=== PATIENT | male | born 1945 | race Caucasian/White ===

== ENCOUNTER 2018-06-26 17:50 | Inpatient (IN) ==
--- NOTE | 2018-06-26 18:14 | Emergency Department Note ---
Disposition Clinical Impression: Melena Anemia Qualifiers: Anemia type: unspecified type Qualified Code(s): D64.9 - Anemia, unspecified Disposition: Admitted As Inpatient Condition: Fair Time of Disposition: 21:25 General Adult HPI - General Chief complaint: ED Recheck/Abnormal Lab/Rx Stated complaint: low hemiglobin Time Seen by Provider: 06/26/18 17:53 Source: patient, EMS Mode of arrival: EMS Limitations: no limitations Nursing Notes Reviewed: Yes Vital Signs Reviewed: Yes - History of Present Illness HPI Narrative: Patient is a 72-year-old male with past medical history of obesity, diabetes, hyperlipidemia, A. fib and is currently on aspirin and apixaban, congestive heart failure, GERD, hypertension, COPD and wears 3 L nasal cannula chronically. Presents today due to concern for dark stools and anemia. Patient is a transfer from the [facility]. Patient states that over the past 30 days, he has had dark colored stools. Denies any abdominal pain. Denies any other dysuria, hematuria, chest pain. He does have chronic shortness of breath that he states is near baseline for his COPD. Denies any fevers, productive cough. He admits to history of GERD. Denies any history of any previous GI bleeds. He does have a history of hemorrhoids but states that he has not had any bright red blood per rectum over the past 30 days. The [facility] did blood work and states that he has had a drop in his hemoglobin of 3 units of the past 3 days and states that his most recent hemoglobin was 7. Labs were not sent over by the [facility]. He was sent here for endoscopy and possible blood transfusion. Patient reportedly had a positive Hemoccult at the [facility]. - Related Data Allergies Allergy/AdvReac Type Severity Reaction Status Date / Time methadone Allergy Hallucinati Verified 06/26/18 19:50 ng mirtazapine Allergy Rash Verified 06/26/18 19:50 morphine Allergy Hallucinati Verified 06/26/18 19:50 ng simvastatin Allergy Gastrointestinal Verified 06/26/18 19:50 Upset All systems ED: reviewed and negative except as stated. Constitutional: Denies: fever Cardiovascular: Denies: chest pain Respiratory: Reports: dyspnea Gastrointestinal: Reports: melena. Denies: abdominal pain, nausea, vomiting, diarrhea, constipation, hematochezia Genitourinary: Denies: urgency, dysuria, frequency, hematuria Past Medical History - Past Medical History Attestation: Yes The following information was validated with the patient. Source: patient Physical Exam - General Limitations: no limitations General appearance: alert, in no apparent distress - Head Head exam: atraumatic, normocephalic, normal inspection - Eye Eye exam: Present: PERRL, EOMI, other (Pale conjunctivae) - ENT ENT exam: normal oropharynx, mucous membranes moist, other (pale sublingual mucosa) - Neck Neck exam: Present: normal inspection, full ROM, trachea midline - Chest Chest inspection: Present: normal inspection, symmetric chest wall rise - Respiratory Respiratory exam: Present: normal lung sounds bilaterally - Cardiovascular Cardiovascular exam: Present: regular rate, normal rhythm, normal heart sounds - Abdominal Exam Abdominal exam: Present: soft, Non-Tender. Absent: tenderness, distention, guarding, rebound, rigidity - Extremities Exam Extremities exam: Present: normal inspection, full ROM. Absent: tenderness, pedal edema - Neurological Exam Neurological exam: Present: alert, oriented X3 - Psychiatric Psychiatric exam: Present: normal affect, normal mood - Skin Skin exam: Present: warm, dry, intact, normal color Course Course Narrative: Vital stable on exam. Physical exam did show gel pallor, sublingual pallor, conjunctival pallor. Otherwise, this is physical exam fairly benign. He had no abdominal pain. Hemoccult positive at outside facility. Basic blood work, CBC, BMP, troponin, EKG, type and screen ordered. Patient's" and is 6.7. Discussed transfusion with the patient, we will go ahead and transfuse 2 units of packed red blood cells. Platelets within normal limits. INR 1.5. Currently waiting on rest of his to labs come back and then will admit for further care. Patient will need GI consult with endoscopy. 21:00 Negative trop. Elevated creat, unsure if chronic due to no labs for comparison. Stable BP and vitals. Accepted by Dr. Turner for admission Vital Signs Temperature 99.6 F 06/26/18 18:02 Pulse Rate 77 06/26/18 18:02 Respiratory Rate 18 06/26/18 18:02 Blood Pressure 123/88 06/26/18 18:02 O2 Sat by Pulse Oximetry 97 06/26/18 18:02 Temperature 99.4 F 06/26/18 20:34 Pulse Rate 80 06/26/18 21:21 Respiratory Rate 20 06/26/18 21:21 Blood Pressure 105/57 06/26/18 21:21 O2 Sat by Pulse Oximetry 100 06/26/18 21:21 Oxygen Delivery Oxygen Delivery Nasal Cannula Medical Decision Making - MDM Narrative Medical decision making narrative: Vital stable on exam. Physical exam did show gel pallor, sublingual pallor, conjunctival pallor. Otherwise, this is physical exam fairly benign. He had no abdominal pain. Hemoccult positive at outside facility. Basic blood work, CBC, BMP, troponin, EKG, type and screen ordered. Patient's" and is 6.7. Discussed transfusion with the patient, we will go ahead and transfuse 2 units of packed red blood cells. Platelets within normal limits. INR 1.5. Currently waiting on rest of his to labs come back and then will admit for further care. Patient will need GI consult with endoscopy. 21:00 Negative trop. Elevated creat, unsure if chronic due to no labs for comparison. Stable BP and vitals. Accepted by Dr. Turner for admission - Medical Records Medical records reviewed: Yes I reviewed the patient's medical records. - Lab Data Lab results reviewed: Yes I reviewed the patient's lab results. Result diagrams: 06/26/18 18:20 06/26/18 18:20 Lab Results 06/26/18 06/26/18 06/26/18 Range/Units 18:20 18:20 18:20 WBC 6.7 (4.3-11.1) K/mcL RBC 2.37 L (4.19-5.50) M/mcL Hgb 6.2 L (12.9-16.9) g/dL Hct 22.4 L (37.5-50.1) % MCV 94.5 (83.0-100.0) fL MCH 26.2 L (28.0-33.3) pg MCHC 27.7 L (31.6-35.5) g/dL RDW 16.4 H (11.5-14.5) % Plt Count 231 (140-400) K/mcL MPV 9.9 (9.4-12.4) fL Immature Gran % 0.3 (0-4) % Seg Neutrophils % 72.0 % Lymphocytes % 16.0 % Monocytes % 11.0 % Eosinophils % 0.4 % Basophils % 0.3 % Neutrophils # 4.8 (1.6-8.9) K/mcL Lymphocytes # 1.1 (0.6-4.6) K/mcL Monocytes # 0.7 (0.0-1.3) K/mcL Eosinophils # 0.0 (0.0-0.6) K/mcL Basophils # 0.0 (0.0-0.2) K/mcL Nucleated RBCs/100 WBC 0.3 H (0) /100 WBC Platelet Estimate Normal (Normal) Hypochromasia Present A (Not Present) Anisocytosis 1+ A (Not Present) Microcytosis Present A (Not Present) PT 16.4 H (9.4-12.1) Seconds INR 1.5 APTT 31.0 (26.0-36.0) Seconds Sodium (136-145) mEq/L Potassium (3.5-5.1) mEq/L Chloride (98-107) mEq/L Carbon Dioxide (23-29) mEq/L BUN (8-23) mg/dL Creatinine (0.70-1.30) mg/dL Est GFR ( Amer) (> 60) Est GFR (Non-Af Amer) (> 60) BUN/Creatinine Ratio (6-26) Glucose (70-105) mg/dL Calculated Osmolality (280-300) Calcium (8.6-10.3) mg/dL Troponin I (< 0.04) ng/mL Blood Type A POSITIVE Antibody Screen NEGATIVE Crossmatch See Detail 06/26/18 Range/Units 18:20 WBC (4.3-11.1) K/mcL RBC (4.19-5.50) M/mcL Hgb (12.9-16.9) g/dL Hct (37.5-50.1) % MCV (83.0-100.0) fL MCH (28.0-33.3) pg MCHC (31.6-35.5) g/dL RDW (11.5-14.5) % Plt Count (140-400) K/mcL MPV (9.4-12.4) fL Immature Gran % (0-4) % Seg Neutrophils % % Lymphocytes % % Monocytes % % Eosinophils % % Basophils % % Neutrophils # (1.6-8.9) K/mcL Lymphocytes # (0.6-4.6) K/mcL Monocytes # (0.0-1.3) K/mcL Eosinophils # (0.0-0.6) K/mcL Basophils # (0.0-0.2) K/mcL Nucleated RBCs/100 WBC (0) /100 WBC Platelet Estimate (Normal) Hypochromasia (Not Present) Anisocytosis (Not Present) Microcytosis (Not Present) PT (9.4-12.1) Seconds INR APTT (26.0-36.0) Seconds Sodium 142 (136-145) mEq/L Potassium 4.0 (3.5-5.1) mEq/L Chloride 94 L (98-107) mEq/L Carbon Dioxide 48 H* (23-29) mEq/L BUN 38 H (8-23) mg/dL Creatinine 1.36 H (0.70-1.30) mg/dL Est GFR ( Amer) > 60 (> 60) Est GFR (Non-Af Amer) 52 L (> 60) BUN/Creatinine Ratio 28 H (6-26) Glucose 131 H (70-105) mg/dL Calculated Osmolality 305 H (280-300) Calcium 8.9 (8.6-10.3) mg/dL Troponin I < 0.03 (< 0.04) ng/mL Blood Type Antibody Screen Crossmatch - EKG Data EKG #1 EKG attestation: Yes I reviewed and interpreted this EKG. EKG results narrative: 06/26/18 at 18:04. NSR. Ratr 72. WV 182. QRS 95. QTC 435. Normal axis. No acute ST changes. S.B.A.R. - S.B.A.R. Situation: Demographics, MOA Background: Presenting Complaint, Relevant PMH, Meds, & Allergies Assessment: Vital Signs, Course and respsone to treatment, Exam Concerns, Patient/Family Expectation, Pertinant Lab Results Recommendation: Barrier(s) to disposition, Recommendation based on pending studies, treatments, or consults S.B.A.R. Report Given to: Dr. Turner Attestation Statement - Attestation Attestation: I, Salazar Hopkins DO, examined this patient [id number] and my medical decision-making was reviewed with Dr. Francisco J Liu, Resident Physician. I agree with the documented findings, disposition and treatment plan as described except to the extent set forth below. I personally supervised and was present for the barreto/critical portions of the procedures completed by the resident documented below. Please see my progress notes for details.
--- NOTE | 2018-06-26 18:27 | Emergency Department Note ---
Disposition Clinical Impression: Melena Anemia Qualifiers: Anemia type: unspecified type Qualified Code(s): D64.9 - Anemia, unspecified Disposition: Admitted As Inpatient Condition: Fair [facility] Provider[facility] - Forms: ED Satisfaction Letter General Adult HPI - General Chief complaint: ED GI Bleed Stated complaint: low hemiglobin Time Seen by Provider: 06/26/18 17:53 Source: patient, EMS Mode of arrival: EMS Limitations: no limitations - History of Present Illness HPI Narrative: 72 yo M [facility] melena for the past 3-4 weeks. He describes it as having dark black stools with his BMs over the past 3-4 weeks and denies any robbi blood. Pt denies any h/o GI bleeds or h/o PUD. He says that he is also having some generalized weakness and malaise and increased SOB from his baseline. He denies any CP, abd pain, N/V/D, VO, fevers or any other sx at this time. [facility] reports [facility] the [facility] + and paperwork [facility] the [facility] shows pt's Hb has dropped from 10 to 7 over the past 3 weeks. Pain Scale: 9 - Related Data Allergies Allergy/AdvReac Type Severity Reaction Status Date / Time methadone Allergy Hallucinati Verified 06/26/18 19:50 ng mirtazapine Allergy Rash Verified 06/26/18 19:50 morphine Allergy Hallucinati Verified 06/26/18 19:50 ng simvastatin Allergy Gastrointestinal Verified 06/26/18 19:50 Upset All systems ED: reviewed and negative except as stated. Constitutional: Reports: weakness (generalized). Denies: fever, chills Eyes: Denies: vision change ENT ED: Denies: dysphagia Cardiovascular: Denies: chest pain, palpitations, syncope Respiratory: Reports: dyspnea. Denies: cough, hemoptysis Gastrointestinal: Reports: melena. Denies: abdominal pain, nausea, vomiting, hematemesis, hematochezia Genitourinary: Denies: hematuria Musculoskeletal: Denies: back pain Neurological: Denies: headache, numbness Past Medical History - Past Medical History Medical history: Reports: arthritis, atrial fibrillation, CHF, diabetes, fibro myalgia, hyperlipidemia, hypertension Psychiatric history: Reports: anxiety, PTSD - Social History Smoking Status: Former smoker Alcohol use: Reports: none Drug use: Reports: none Physical Exam - General Limitations: no limitations General appearance: alert Course Vital Signs Temperature 99.6 F 06/26/18 18:02 Pulse Rate 77 06/26/18 18:02 Respiratory Rate 18 06/26/18 18:02 Blood Pressure 123/88 06/26/18 18:02 O2 Sat by Pulse Oximetry 97 06/26/18 18:02 Temperature 99.4 F 06/26/18 20:34 Pulse Rate 74 06/26/18 20:34 Respiratory Rate 18 06/26/18 20:34 Blood Pressure 122/59 06/26/18 20:34 O2 Sat by Pulse Oximetry 98 06/26/18 20:34 Oxygen Delivery Oxygen Delivery Nasal Cannula Medical Decision Making - Lab Data Result diagrams: 06/26/18 18:20 06/26/18 18:20 Lab Results 06/26/18 06/26/18 06/26/18 Range/Units 18:20 18:20 18:20 WBC 6.7 (4.3-11.1) K/mcL RBC 2.37 L (4.19-5.50) M/mcL Hgb 6.2 L (12.9-16.9) g/dL Hct 22.4 L (37.5-50.1) % MCV 94.5 (83.0-100.0) fL MCH 26.2 L (28.0-33.3) pg MCHC 27.7 L (31.6-35.5) g/dL RDW 16.4 H (11.5-14.5) % Plt Count 231 (140-400) K/mcL MPV 9.9 (9.4-12.4) fL Immature Gran % 0.3 (0-4) % Seg Neutrophils % 72.0 % Lymphocytes % 16.0 % Monocytes % 11.0 % Eosinophils % 0.4 % Basophils % 0.3 % Neutrophils # 4.8 (1.6-8.9) K/mcL Lymphocytes # 1.1 (0.6-4.6) K/mcL Monocytes # 0.7 (0.0-1.3) K/mcL Eosinophils # 0.0 (0.0-0.6) K/mcL Basophils # 0.0 (0.0-0.2) K/mcL Nucleated RBCs/100 WBC 0.3 H (0) /100 WBC Platelet Estimate Normal (Normal) Hypochromasia Present A (Not Present) Anisocytosis 1+ A (Not Present) Microcytosis Present A (Not Present) PT 16.4 H (9.4-12.1) Seconds INR 1.5 APTT 31.0 (26.0-36.0) Seconds Sodium (136-145) mEq/L Potassium (3.5-5.1) mEq/L Chloride (98-107) mEq/L Carbon Dioxide (23-29) mEq/L BUN (8-23) mg/dL Creatinine (0.70-1.30) mg/dL Est GFR ( Amer) (> 60) Est GFR (Non-Af Amer) (> 60) BUN/Creatinine Ratio (6-26) Glucose (70-105) mg/dL Calculated Osmolality (280-300) Calcium (8.6-10.3) mg/dL Troponin I (< 0.04) ng/mL Blood Type A POSITIVE Antibody Screen NEGATIVE Crossmatch See Detail 06/26/18 Range/Units 18:20 WBC (4.3-11.1) K/mcL RBC (4.19-5.50) M/mcL Hgb (12.9-16.9) g/dL Hct (37.5-50.1) % MCV (83.0-100.0) fL MCH (28.0-33.3) pg MCHC (31.6-35.5) g/dL RDW (11.5-14.5) % Plt Count (140-400) K/mcL MPV (9.4-12.4) fL Immature Gran % (0-4) % Seg Neutrophils % % Lymphocytes % % Monocytes % % Eosinophils % % Basophils % % Neutrophils # (1.6-8.9) K/mcL Lymphocytes # (0.6-4.6) K/mcL Monocytes # (0.0-1.3) K/mcL Eosinophils # (0.0-0.6) K/mcL Basophils # (0.0-0.2) K/mcL Nucleated RBCs/100 WBC (0) /100 WBC Platelet Estimate (Normal) Hypochromasia (Not Present) Anisocytosis (Not Present) Microcytosis (Not Present) PT (9.4-12.1) Seconds INR APTT (26.0-36.0) Seconds Sodium 142 (136-145) mEq/L Potassium 4.0 (3.5-5.1) mEq/L Chloride 94 L (98-107) mEq/L Carbon Dioxide 48 H* (23-29) mEq/L BUN 38 H (8-23) mg/dL Creatinine 1.36 H (0.70-1.30) mg/dL Est GFR ( Amer) > 60 (> 60) Est GFR (Non-Af Amer) 52 L (> 60) BUN/Creatinine Ratio 28 H (6-26) Glucose 131 H (70-105) mg/dL Calculated Osmolality 305 H (280-300) Calcium 8.9 (8.6-10.3) mg/dL Troponin I < 0.03 (< 0.04) ng/mL Blood Type Antibody Screen Crossmatch Attestation Statement - Attestation Attestation: I, Salazar Hopkins DO, examined this patient [id number] and my medical decision-making was reviewed with Francisco J BARAJAS 3 I agree with the documented findings, disposition and treatment plan as described except to the extent set forth below. I personally supervised and was present for the barreto/critical portions of the procedures completed by the resident documented below. Please see my progress notes for details.
[2018-06-26 18:47] LABS: Mean Platelet Volume 9.9 fL (9.4-12.4)
[2018-06-26 18:49] LABS: Basophils % 0.3 %; Eosinophils % 0.4 %; Hematocrit 22.4 % (37.5-50.1); Hemoglobin 6.2 g/dL (12.9-16.9); Immature Granulocytes % 0.3 % (0-4); Lymphocytes # 1.1 K/mcL (0.6-4.6); Mean Corpuscular HGB Conc 27.7 g/dL (31.6-35.5); Mean Corpuscular Hemoglobin 26.2 pg (28.0-33.3); Mean Corpuscular Volume 94.5 fL (83.0-100.0); Monocytes # 0.7 K/mcL (0.0-1.3); Nucleated Red Blood Cells 0.3 /100 WBC (0); Platelet Count 231 K/mcL (140-400); Red Blood Count 2.37 M/mcL (4.19-5.50); Red Cell Distribution Width 16.4 % (11.5-14.5)
[2018-06-26 18:52] LABS: Neutrophils # 4.8 K/mcL (1.6-8.9)
[2018-06-26 18:54] LABS: INR 1.5; Prothrombin Time 16.4 Seconds (9.4-12.1)
[2018-06-26 19:10] LABS: Anisocytosis 1+ (Not Present); Hypochromasia Present (Not Present); Microcytosis Present (Not Present); Platelet Estimate Normal (Normal)
--- NOTE | 2018-06-26 19:12 | Emergency Department Note ---
Disposition Clinical Impression: Melena Anemia Qualifiers: Anemia type: unspecified type Qualified Code(s): D64.9 - Anemia, unspecified Disposition: Admitted As Inpatient Condition: Fair [facility] [Primary Care Provider[facility] - Forms: ED Satisfaction Letter Time of Disposition: 20:49 General Adult HPI - General Chief complaint: ED GI Bleed Stated complaint: low hemiglobin Time Seen by Provider: 06/26/18 17:53 Source: patient, EMS Mode of arrival: EMS Limitations: no limitations - History of Present Illness Pain Scale: 9 - Related Data Allergies Allergy/AdvReac Type Severity Reaction Status Date / Time methadone Allergy Hallucinati Verified 06/26/18 19:50 ng mirtazapine Allergy Rash Verified 06/26/18 19:50 morphine Allergy Hallucinati Verified 06/26/18 19:50 ng simvastatin Allergy Gastrointestinal Verified 06/26/18 19:50 Upset Constitutional: Denies: fever Eyes: Denies: vision change ENT ED: Denies: dysphagia Cardiovascular: Denies: chest pain Respiratory: Reports: dyspnea Gastrointestinal: Reports: melena. Denies: abdominal pain, nausea, vomiting, diarrhea, constipation, hematochezia Genitourinary: Denies: urgency, dysuria, frequency, hematuria Musculoskeletal: Denies: back pain Neurological: Denies: headache, numbness Past Medical History - Past Medical History Medical history: Reports: arthritis, atrial fibrillation, CHF, diabetes, fibromyalgia, hyperlipidemia, hypertension Psychiatric history: Reports: anxiety, PTSD - Social History Smoking Status: Former smoker Alcohol use: Reports: none Drug use: Reports: none Physical Exam - General Limitations: no limitations General appearance: alert, in no apparent distress Course Vital Signs Temperature 99.6 F 06/26/18 18:02 Pulse Rate 77 06/26/18 18:02 Respiratory Rate 18 06/26/18 18:02 Blood Pressure 123/88 06/26/18 18:02 O2 Sat by Pulse Oximetry 97 06/26/18 18:02 Temperature 99.4 F 06/26/18 20:34 Pulse Rate 74 06/26/18 20:34 Respiratory Rate 18 06/26/18 20:34 Blood Pressure 122/59 06/26/18 20:34 O2 Sat by Pulse Oximetry 98 06/26/18 20:34 Oxygen Delivery Oxygen Delivery Nasal Cannula Medical Decision Making - Lab Data Result diagrams: 06/26/18 18:20 06/26/18 18:20 Lab Results 06/26/18 06/26/18 06/26/18 Range/Units 18:20 18:20 18:20 WBC 6.7 (4.3-11.1) K/mcL RBC 2.37 L (4.19-5.50) M/mcL Hgb 6.2 L (12.9-16.9) g/dL Hct 22.4 L (37.5-50.1) % MCV 94.5 (83.0-100.0) fL MCH 26.2 L (28.0-33.3) pg MCHC 27.7 L (31.6-35.5) g/dL RDW 16.4 H (11.5-14.5) % Plt Count 231 (140-400) K/mcL MPV 9.9 (9.4-12.4) fL Immature Gran % 0.3 (0-4) % Seg Neutrophils % 72.0 % Lymphocytes % 16.0 % Monocytes % 11.0 % Eosinophils % 0.4 % Basophils % 0.3 % Neutrophils # 4.8 (1.6-8.9) K/mcL Lymphocytes # 1.1 (0.6-4.6) K/mcL Monocytes # 0.7 (0.0-1.3) K/mcL Eosinophils # 0.0 (0.0-0.6) K/mcL Basophils # 0.0 (0.0-0.2) K/mcL Nucleated RBCs/100 WBC 0.3 H (0) /100 WBC Platelet Estimate Normal (Normal) Hypochromasia Present A (Not Present) Anisocytosis 1+ A (Not Present) Microcytosis Present A (Not Present) PT 16.4 H (9.4-12.1) Seconds INR 1.5 APTT 31.0 (26.0-36.0) Seconds Sodium (136-145) mEq/L Potassium (3.5-5.1) mEq/L Chloride (98-107) mEq/L Carbon Dioxide (23-29) mEq/L BUN (8-23) mg/dL Creatinine (0.70-1.30) mg/dL Est GFR ( Amer) (> 60) Est GFR (Non-Af Amer) (> 60) BUN/Creatinine Ratio (6-26) Glucose (70-105) mg/dL Calculated Osmolality (280-300) Calcium (8.6-10.3) mg/dL Troponin I (< 0.04) ng/mL Blood Type A POSITIVE Antibody Screen NEGATIVE Crossmatch See Detail 06/26/18 Range/Units 18:20 WBC (4.3-11.1) K/mcL RBC (4.19-5.50) M/mcL Hgb (12.9-16.9) g/dL Hct (37.5-50.1) % MCV (83.0-100.0) fL MCH (28.0-33.3) pg MCHC (31.6-35.5) g/dL RDW (11.5-14.5) % Plt Count (140-400) K/mcL MPV (9.4-12.4) fL Immature Gran % (0-4) % Seg Neutrophils % % Lymphocytes % % Monocytes % % Eosinophils % % Basophils % % Neutrophils # (1.6-8.9) K/mcL Lymphocytes # (0.6-4.6) K/mcL Monocytes # (0.0-1.3) K/mcL Eosinophils # (0.0-0.6) K/mcL Basophils # (0.0-0.2) K/mcL Nucleated RBCs/100 WBC (0) /100 WBC Platelet Estimate (Normal) Hypochromasia (Not Present) Anisocytosis (Not Present) Microcytosis (Not Present) PT (9.4-12.1) Seconds INR APTT (26.0-36.0) Seconds Sodium 142 (136-145) mEq/L Potassium 4.0 (3.5-5.1) mEq/L Chloride 94 L (98-107) mEq/L Carbon Dioxide 48 H* (23-29) mEq/L BUN 38 H (8-23) mg/dL Creatinine 1.36 H (0.70-1.30) mg/dL Est GFR ( Amer) > 60 (> 60) Est GFR (Non-Af Amer) 52 L (> 60) BUN/Creatinine Ratio 28 H (6-26) Glucose 131 H (70-105) mg/dL Calculated Osmolality 305 H (280-300) Calcium 8.9 (8.6-10.3) mg/dL Troponin I < 0.03 (< 0.04) ng/mL Blood Type Antibody Screen Crossmatch Attestation Statement - Attestation Attestation: I, Salazar Hopkins DO, examined this patient [id number] and my medical decision-making was reviewed with Dr. Francisco J Liu, Resident Physician. I agree with the documented findings, disposition and treatment plan as described except to the extent set forth below. I personally supervised and was present for the barreto/critical portions of the procedures completed by the resident documented below. Please see my progress notes for details. 72-year-old male presents emergency room from the [facility] where he was evaluated for dark colored stool over the last 2-3 weeks. Patient is currently on Eliquis as well as aspirin. He does have a history of acid reflux but no significant end-stage use. Patient denies any chest pain or shortness of breath. No nausea vomiting or diarrhea. He is describing some generalized weakness but no other complaints. No recent fevers or chills. No falls trauma or injury. He has not had any other issues this time. Labs were drawn on the inpatient setting and he is found to have a hemoglobin of 7. With the melenic stools see was Hemoccult positive. He is transferred to our facility for further management and care. Patient denies any other complaints or issues on arrival here. Vital signs are stable. Patient is alert he is oriented he is answering questions. He is chronically on 3 L to 4 L of oxygen by nasal cannula. Lungs are clear heart is regular. Abdomen is distended but soft. No guarding no rigidity no peritoneal symptoms at this time. No pulsatile masses or lesions. Patient denies any rectal bleeding at this time no blood from his urine. Denies any burning with urination. Extremities are otherwise normal outside of swelling with no signs of cellulitis or rash. Patient will repeat labs collected here. CT imaging the abdomen does not appear to be warranted at this point the patient has no pain or symptoms. No concern for perforation or free fluid in the abdomen at this time. All the symptoms of been present for approximately 3 weeks have been slow in onset. Patient does not have any gross blood per rectum at this time. Workup will be completed and disposition determined. Patient is otherwise stable. See detailed documentation of the physical exam, medical intervention, medical decision- making disposition in the resident physician's note. No critical care provider the patient's treatment course at this time. 193 Patient found to have a hemoglobin of 6.2 here at this time. Occult testing was confirmed to the outside facility is positive. Patient's labs otherwise unremarkable. Is resting comfortably in the bed. 2 units of blood transfusion will be ordered this time and GI consultation for GI bleed evaluation. Patient is otherwise asymptomatic. Does not require any other further intervention or management this point. 2. Peripheral IVs will be started. Patient will be discussed with the hospitals for admission. 2014 Patient has stable exam. 45 minutes of critical care applied secondary to blood transfusion. Patient was discussed with Hospitalist Dr. Yañez and a detailed review was completed. No other recommendations or concerns at this point. Patient will be monitored in emergency room department until the admission process is completed.
[2018-06-26 19:41] LABS: BUN/Creatinine Ratio 28 (6-26); Blood Urea Nitrogen 38 mg/dL (8-23); Calcium 8.9 mg/dL (8.6-10.3); Chloride 94 mEq/L (98-107); Glucose 131 mg/dL (70-105); Osmolality,Calculated 305 (280-300); Sodium 142 mEq/L (136-145); Troponin I < 0.03 ng/mL (< 0.04); eGFR For Non-African Americans 52 (> 60)
[2018-06-26] MEDS ORDERED: Pantoprazole 40 MG VIAL IVP ONE (19:44)
[2018-06-26 19:46] LABS: Carbon Dioxide 48 mEq/L (23-29)
[2018-06-26] MEDS ORDERED: 0.9 % Sodium Chloride 500 ML ONE (20:04)
[2018-06-26] MEDS ORDERED: 0.9 % Sodium Chloride 1,000 ML IVC SCH (20:45)
[2018-06-26] MEDS ORDERED: Naloxone 0.4 MG/ML INJ IVP PRN (20:45)
[2018-06-26 21:30] LABS: Bilirubin,Urine Negative (Negative); Blood,Urine Negative (Negative); Clarity,Urine Clear (Clear); Color,Urine Yellow (Yellow); Glucose,Urine (UA) Normal (Normal); Ketones,Urine Negative (Negative); Leukocyte Esterase,Urine Negative (Negative); Nitrite,Urine Negative (Negative); PH,Urine 7.5 pH Units (5.0-8.0); Protein,Urine Negative (Neg-Trace); Specific Gravity,Urine 1.018 (1.010-1.025); Urobilinogen,Urine Normal (Normal)
--- NOTE | 2018-06-26 23:29 | Internal Med History&Physical ---
Date of Encounter: 06/26/18 Time of Encounter: 20:00 Internal Medicine - H&P: HPI Chief complaint: GI Bleed History of present illness: Mr. Dubon is a 72 year old male with a past medical history of diabetes, hyperlipidemia, atrial fibrillation currently on aspirin and Eliquis, CHF, hypertension and COPD on 3 L nasal cannula who currently resides at the [facility] who presented with dark stools and anemia. Patient reports dark-appearing stools for the past 30 days. Denies any bright red blood. Patient currently on Eliquis for his atrial fibrillation. He reports some dizziness. Denies any abdominal pain, nausea, vomiting, diarrhea or NSAID use. Per report patient's hemoglobin was 10 three days ago and found to be 7 today. Patient was transferred for endoscopy and possible blood transfusion. Repeat hemoglobin here 6.3. Patient reports she has had a colonoscopy twice, is unsure how long ago but states approximately 5 years ago. Patient has been hemodynamically stable since arrival. Past Med Surg Social Fam HX - Past Medical History Medical history: arthritis, atrial fibrillation, CHF, diabetes, fibromyalgia, hyperlipidemia, hypertension Psychiatric history: anxiety, PTSD - Past Surgical History Additional surgical history: bunyon x2, colonoscopy - Social History Smoking Status: Former smoker Alcohol use: none Drug use: none Internal Medicine - H&P: Meds Acetaminophen [Non-Aspirin] 650 mg PO Q6H PRN 06/26/18 [History] Apixaban [Eliquis] 5 mg PO BID 06/26/18 [History] Aspirin 81 mg PO DAILY 06/26/18 [History] Budesonide/Formoterol 160/4.5 [Symbicort 160/4.5] 2 puff IH BIDR 06/26/18 [Hi story] Cholecalciferol (D-3) [Vitamin D] 2,000 unit PO DAILY 06/26/18 [History] Clotrimazole 1% CRM [Lotrimin 1%] 1 appl TP BID 06/26/18 [History] Furosemide [Lasix] 60 mg PO BID 06/26/18 [History] Hydrocortisone 1% CREAM [Cortaid] 1 gm TP Q6H PRN 06/26/18 [History] Ipratropium/Albuterol Neb [Duoneb] 3 ml IH Q6HR 06/26/18 [History] Losartan [Cozaar] 50 mg PO DAILY 06/26/18 [History] Metoprolol [Lopressor] 25 mg PO BID 06/26/18 [History] NIFEdipine XL (24 HR) [Procardia XL] 30 mg PO DAILY 06/26/18 [History] Polyethylene Glycol 3350 [MiraLAX] 17 gm PO DAILY PRN 06/26/18 [History] Pravastatin Sodium [Pravachol] 20 mg PO HS 06/26/18 [History] Allergy/AdvReac Type Severity Reaction Status Date / Time methadone Allergy Hallucinati Verified 06/26/18 19:50 ng mirtazapine Allergy Rash Verified 06/26/18 19:50 morphine Allergy Hallucinati Verified 06/26/18 19:50 ng simvastatin Allergy Gastrointestinal Verified 06/26/18 19:50 Upset All Systems PM: A 10-system review of systems was performed and is negative for pertinent findings except as documented above in the HPI. - Constitutional Constitutional: no chills, no fever(s), no night sweats - EENT Eyes: no change in vision, no discharge, no pain, no photophobia Ears: no ear discharge, no ear pain, no tinnitus Nose, mouth and throat: no dysphagia, no nasal discharge, no neck pain, no sore throat - Cardiovascular Cardiovascular ROS IM: no chest pain, no diaphoresis, no dyspnea, no lig htheadedness, no palpitations, no syncope - Respiratory Respiratory: no cough, no dyspnea, no wheezing, no excessive phlegm production - Gastrointestinal Gastrointestinal: no abdominal pain, no diarrhea, no hematemesis, no hematochezia, no melena, no nausea, no vomiting - Musculoskeletal Musculoskeletal ROS IM: no numbness, no tingling - Integumentary Integumentary IM: no rash, no unusual bruising - Neurological Neurological ROS: no confusion, no convulsions, no focal weakness, no numbness, no tingling, no tremor(s) - Hematologic/Lymphatic Hematologic/Lymphatic: no easy bruising - Constitutional Vitals: Temp Pulse Resp BP Pulse Ox 98.3 F 77 18 130/64 96 06/26/18 22:01 06/26/18 22:01 06/26/18 22:01 06/26/18 22:01 06/26/18 22:01 Exam: General: Alert and oriented 3 sitting up in bed in no acute distress Skin:Normal color, no rash, no lesions. HEENT:EOM, pupils equal, round and reactive. Cardiovascular:Normal S1 & S2, no rubs, murmurs or gallops. No JVD. Pulse regular. Lungs:Normal breath sounds, no wheezes or crackles. Abdomen:Soft, distended non-tender, no rigidity. No evidence of robbi blood on MARIO. Extremities:No deformity, no edema or tenderness, no joint swelling or clubbing. Neurological:Normal cognition and motor skills. Pulses:Carotid and radial pulses normal +2. Rest of the physical exam is non contributory Internal Med - H&P Results - Labs CBC & Chem 7: 06/26/18 18:20 06/26/18 18:20 Labs: Short CBC 06/26/18 Range/Units 18:20 WBC 6.7 (4.3-11.1) K/mcL Hgb 6.2 L (12.9-16.9) g/dL Hct 22.4 L (37.5-50.1) % Plt Count 231 (140-400) K/mcL Neutrophils # 4.8 (1.6-8.9) K/mcL BMP 06/26/18 18:20 Sodium 142 Potassium 4.0 Chloride 94 L Carbon Dioxide 48 H* BUN 38 H Creatinine 1.36 H Glucose 131 H Calcium 8.9 Cardiac Enzymes 06/26/18 Range/Units 18:20 Troponin I < 0.03 (< 0.04) ng/mL Urine 06/26/18 Range/Units 20:35 Urine Color Yellow (Yellow) Urine Clarity Clear (Clear) Urine pH 7.5 (5.0-8.0) pH Units Ur Specific [place] 1.018 (1.010-1.025) Urine Protein Negative (Neg-Trace) mg/dL Urine Glucose (UA) Normal (Normal) mg/dL - Assessment and Plan (1) Melena Current Visit: Yes Status: Acute Assessment and plan: Patient presents with anemia in the setting of reported dark tarry stools for the past 30 days. Currently on Eliquis. Denies any NSAID use or epigastric pain. No weight loss. BUN also found to be elevated at 38. Concern for upper GI bleed. -Continue with blood transfusions 2 -We will keep patient nothing by mouth after midnight -Continue with IV Protonix 40 mg twice a day -GI consult (2) Anemia Current Visit: Yes Status: Acute Assessment and plan: Patient presents with symptomatic anemia with reports of melanotic stools concerning for upper GI bleed. Found to have a hemoglobin of [facility]. [facility] 7 today with reports of patient's hemoglobin being 10 three days ago and positive occult stool today. Patient currently on Eliquis for atrial fibrillation. Does report some brief symptoms of dizziness when standing. Hemodynamically stable otherwise. -Type and screen. We will transfuse 2 units of packed red blood cells. Reassess hemoglobin. -Plan for endoscopy Qualifiers: Anemia type: unspecified type Qualified Code(s): D64.9 - Anemia, unspecified (3) COPD (chronic obstructive pulmonary disease) Current Visit: Yes Status: Acute Assessment and plan: History of COPD currently on 3 L nasal cannula at baseline. No reports of shortness of breath or wheezing. Does have an elevated bicarbonate 48 likely compensatory. At this time no evidence of an acute exacerbation. -Continue home inhalers Qualifiers: Emphysema type: unspecified Qualified Code(s): J43.9 - Emphysema, unspecified (4) Atrial fibrillation Current Visit: Yes Status: Acute Assessment and plan: History of atrial fibrillation rate controlled on anticoagulation with Eliquis. -Consider holding Eliquis. Qualifiers: Atrial fibrillation type: unspecified Qualified Code(s): I48.91 - Unspecified atrial fibrillation (5) Congestive heart failure Current Visit: Yes Status: Acute Assessment and plan: History of congestive heart failure currently on 60 mg of Lasix twice a day. No reports of chest pain at this time. Troponin negative. EKG shows no acute ischemic changes. -We will continue aspirin, beta sandy, statin and Lasix at this time. Monitor for evidence of fluid overload given the 2 units of blood and we are giving. Qualifiers: Heart failure type: unspecified Heart failure chronicity: unspecified Qualified Code(s): I50.9 - Heart failure, unspecified - Time Spent With Patient Total time spent is greater than 50% in coordination of care (as documented) at patient's floor/unit and/or counseling patient:
[2018-06-27] MEDS ORDERED: 0.9 % Sodium Chloride 500 ML ONE (00:06)
[2018-06-27] MEDS: Ipratropium/Albuterol Neb 3 ML IH SCH ×4 (03:51→21:41)
[2018-06-27] MEDS: Pantoprazole 40 MG VIAL IVP SCH ×2 (05:41→18:02)
[2018-06-27 07:19] LABS: Mean Corpuscular Volume 92.4 fL (83.0-100.0)
[2018-06-27 07:21] LABS: Basophils % 0.3 %; Eosinophils # 0.1 K/mcL (0.0-0.6); Eosinophils % 0.8 %; Hematocrit 29.3 % (37.5-50.1); Hemoglobin 8.3 g/dL (12.9-16.9); Immature Granulocytes % 0.5 % (0-4); Lymphocytes # 1.3 K/mcL (0.6-4.6); Lymphocytes % 17.1 %; Mean Corpuscular HGB Conc 28.3 g/dL (31.6-35.5); Mean Corpuscular Hemoglobin 26.2 pg (28.0-33.3); Mean Platelet Volume 9.9 fL (9.4-12.4); Monocytes # 0.9 K/mcL (0.0-1.3); Monocytes % 12.2 %; Neutrophils # 5.1 K/mcL (1.6-8.9); Nucleated Red Blood Cells 0.5 /100 WBC (0); Platelet Count 231 K/mcL (140-400); Red Blood Count 3.17 M/mcL (4.19-5.50); Red Cell Distribution Width 18.3 % (11.5-14.5); Segmented Neutrophils % 69.1 %
[2018-06-27 07:32] LABS: INR 1.3; Prothrombin Time 14.4 Seconds (9.4-12.1)
[2018-06-27 07:35] LABS: Activated Partial Thrombo Time 28.5 Seconds (26.0-36.0)
[2018-06-27] MEDS: Aspirin 81 MG TAB.CHEW PO SCH (07:41)
[2018-06-27] MEDS: Clotrimazole 1% CRM 15 GM TUBE TP SCH (07:58)
[2018-06-27 08:09] LABS: Alanine Aminotransferase 11 Units/L (7-52); Albumin 3.5 g/dL (3.5-5.7); Albumin/Globulin Ratio 1.3 (1.1-2.2); Alkaline Phosphatase 52 Units/L (34-104); Aspartate Amino Transferase 15 Units/L (13-39); BUN/Creatinine Ratio 24 (6-26); Bilirubin,Total 0.7 mg/dL (0.3-1.0); Blood Urea Nitrogen 35 mg/dL (8-23); Calcium 8.8 mg/dL (8.6-10.3); Carbon Dioxide 45 mEq/L (23-29); Chloride 95 mEq/L (98-107); Globulin 2.7 g/dL (2.4-3.5); Glucose 118 mg/dL (70-105); Osmolality,Calculated 307 (280-300); Potassium 4.1 mEq/L (3.5-5.1); Sodium 144 mEq/L (136-145); Total Protein 6.2 g/dL (6.4-8.9); Troponin I < 0.03 ng/mL (< 0.04); eGFR For Non-African Americans 49 (> 60)
--- NOTE | 2018-06-27 08:13 | Internal Med Progress Note ---
Hospitalist Progress Note - Encounter Date of Encounter: 06/27/18 Time of Encounter: 08:10 - Subjective Interval History: Nursing reported patient was altered this morning and lethargic and had minimal response to him. I arrived to see patient and by that time his lethargy did respond. History this morning limited by patient's apparent confusion. He is aware that he is here for bleeding, otherwise knows no other details. He denies CB, SOB, n/v - Exam Vitals: Temp Pulse Resp BP Pulse Ox 98.7 F 62 21 117/46 92 06/27/18 03:31 06/27/18 03:31 06/27/18 03:51 06/27/18 03:51 06/27/18 03:51 Exam: General: Alert and oriented 2 sitting up in bed in no acute distress, cooperative Skin:Normal color, no rash, no lesions. HEENT:EOMI, PERRLA Cardiovascular: RRR. Lungs:+ wheezing throughout. Abdomen:Soft, distended non-tender, no rigidity. Extremities:No deformity, 2+ bipedal pitting edema Neurological:Normal cognition and motor skills. Pulses:Carotid and radial pulses normal +2. Psych: normal mood, no agitation. - Assessment and Plan (1) Anemia Current Visit: Yes Status: Acute Assessment and Plan: Acute blood loss anemia secondary to UGIB Patient presents with symptomatic anemia with reports of melanotic stools concerning for upper GI bleed. Found to have a hemoglobin of 6.3. [facility] 7 today with reports of patient's hemoglobin being 10 three days ago and positive occult stool today. Patient currently on Eliquis for atrial fibrillation. Does report some brief symptoms of dizziness when standing. Hemodynamically stable otherwise. - DC Eliquis -Finished 2 units PRBC - Repeat CBC pending. -Plan for endoscopy (2) Upper GI bleed Current Visit: Yes Status: Acute Assessment and Plan: Plan as above. (3) Acute and chronic respiratory failure Current Visit: Yes Status: Acute Assessment and Plan: [facility] documents patient became agitated and confused and oxygen level was in 70s and needed bipap and then levels improved. BP was 99/60, on nifedipine for htn and rectal spasms and this medication has hold paremeters. He does exhibit wheezing on exam as well. STAT ABG Continue scheduled duo nebs Start prednisone. (4) COPD (chronic obstructive pulmonary disease) Current Visit: Yes Status: Acute Assessment and Plan: History of COPD currently on 3 L nasal cannula at baseline. Patient per OR records hypoxic and became agitated. He does wheeze here -Continue home inhalers (5) Atrial fibrillation Current Visit: Yes Status: Acute Assessment and Plan: History of atrial fibrillation rate controlled on anticoagulation with Eliquis prior to admission. - Hold Eliquis - Continue metoprolol (6) Congestive heart failure Current Visit: Yes Status: Acute Assessment and Plan: History of congestive heart failure currently on 60 mg of Lasix twice a day. No reports of chest pain at this time. Troponin negative. EKG shows no acute ischemic changes. - Status post 2 units PRBC he does have some edema, may need a single dose of Lasix with close monitoring. (7) Chronic respiratory failure with hypoxia Current Visit: Yes Status: Acute (8) [place] Current Visit: Yes Status: Acute (9) Wrist drop Current Visit: Yes Status: Acute (10) Anxiety Current Visit: Yes Status: Acute (11) Obstructive sleep apnea Current Visit: Yes Status: Acute (12) Mild cognitive disorder Current Visit: Yes Status: Acute - Time Spent with Patient Total time spent is greater than 50% in coordination of care (as documented) at patient's floor/unit and/or counseling patient: Internal Medicine: Result - Labs CBC & Chem 7: 06/27/18 06:51 06/27/18 06:51 Labs: Short CBC 06/26/18 Range/Units 18:20 WBC 6.7 (4.3-11.1) K/mcL Hgb 6.2 L (12.9-16.9) g/dL Hct 22.4 L (37.5-50.1) % Plt Count 231 (140-400) K/mcL Neutrophils # 4.8 (1.6-8.9) K/mcL BMP 06/26/18 06/27/18 18:20 06:51 Sodium 142 144 Potassium 4.0 4.1 Chloride 94 L 95 L Carbon Dioxide 48 H* 45 H* BUN 38 H 35 H Creatinine 1.36 H 1.43 H Glucose 131 H 118 H Calcium 8.9 8.8 Cardiac Enzymes 06/26/18 06/27/18 Range/Units 18:20 06:51 Troponin I < 0.03 < 0.03 (< 0.04) ng/mL Liver Function 06/27/18 Range/Units 06:51 Total Bilirubin 0.7 (0.3-1.0) mg/dL AST 15 (13-39) Units/L ALT 11 (7-52) Units/L Alkaline Phosphatase 52 (34-104) Units/L Albumin 3.5 (3.5-5.7) g/dL Urine 06/26/18 Range/Units 20:35 Urine Color Yellow (Yellow) Urine Clarity Clear (Clear) Urine pH 7.5 (5.0-8.0) pH Units Ur Specific [place] 1.018 (1.010-1.025) Urine Protein Negative (Neg-Trace) mg/dL Urine Glucose (UA) Normal (Normal) mg/dL - ABG Interpretation ABG results: PT/INR, D-dimer PT 14.4 Seconds (9.4-12.1) H 06/27/18 06:51 Consult Discharge Plan - Plan Referrals: [facility] [Outside] (1) Anemia Qualifiers: Anemia type: iron deficiency (3) Acute and chronic respiratory failure Qualifiers: Respiratory failure complication: hypoxia Qualified Code(s): J96.21 - Acute and chronic respiratory failure with hypoxia (4) COPD (chronic obstructive pulmonary disease) Qualifiers: Emphysema type: unspecified Qualified Code(s): J43.9 - Emphysema, unspecified (5) Atrial fibrillation Qualifiers: Atrial fibrillation type: unspecified Qualified Code(s): I48.91 - Unspecified atrial fibrillation (6) Congestive heart failure Qualifiers: Heart failure type: unspecified Heart failure chronicity: unspecified Qualified Code(s): I50.9 - Heart failure, unspecified
[2018-06-27] MEDS ORDERED: Furosemide 40 MG/4 ML VIAL IVP ONE (08:17)
[2018-06-27 08:35] LABS: ABG Base Excess 17 mEq/L (-2 to 3); ABG HCO3 47 mEq/L (21-27); ABG Oxygen Saturation 94 % (95-98); ABG PCO2 95 mmHg (35-45); ABG PO2 86 mmHg (85-104); ABG TCO2 50 mEq/L (20-26)
[2018-06-27 08:40] LABS: Anisocytosis 1+ (Not Present); Hypochromasia Present (Not Present); Platelet Estimate Normal (Normal); Polychromasia 1+ (Not Present); Stomatocytes 1+ (Not Present)
[2018-06-27] MEDS ORDERED: NIFEdipine XL (24 HR) 30 MG TAB.ER.24 PO SCH (09:00)
[2018-06-27] MEDS ORDERED: Furosemide 40 MG TABLET PO SCH (09:00)
[2018-06-27] MEDS: predniSONE 20 MG TABLET PO SCH (09:57)
[2018-06-27] MEDS ORDERED: 0.9 % Sodium Chloride 250 ML ONE ×2 (10:10→13:57)
[2018-06-27] MEDS: Budesonide/Formoterol 160/4.5 1 PUFF INH IH SCH ×2 (10:18→21:41)
--- NOTE | 2018-06-27 10:50 | Gastroenterology Consult Note ---
Date of Encounter: 06/27/18 Time of Encounter: 08:45 - Assessment and plan (1) Anemia Current Visit: Yes Status: Acute Assessment and plan: Per report patient's Hgb was 10 three days ago and found to be 7 prior to transfer. On arrival here, Hgb 6.2 and after 2 units PRBC Hgb 8.3 this AM. Continue to monitor CBC and transfuse PRBC as needed. Planned for EGD this morning, but with CO2 95, will hold until tomorrow. Keep NPO at midnight for EGD tomorrow to r/o esophagitis, gastritis, duodenitis, PUD, MW tear, or AVM. Continue PPI. Qualifiers: Anemia type: unspecified type Qualified Code(s): D64.9 - Anemia, unspecified (2) Melena Current Visit: Yes Status: Acute Assessment and plan: As above. - Time Spent With Patient Total time spent is greater than 50% in coordination of care (as documented) at patient's floor/unit and/or counseling patient: GI History of Present Illness - Data of Consult Patient: new to practice Consult date: 06/27/18 Requesting Physician: Reed Turner MD - Consult Narrative Reason for consult: GI bleed History of present illness: Mr. Dubon is a 72 year old male with PMHx of arthritis, Afib on ASA and Eliquis, COPD on 3 L oxygen, CHF, DM, fibromyalgia, HLD, HTN who currently resides at the [facility] presented with dark stools and anemia. He reports dark tarry stools for the past month and denies any BRBPR. He denies fever, chills, chest pain, abdominal pain, nauesa, vomiting, or hematochezia. Per report patient's hemoglobin was 10 three days ago and found to be 7 prior to transfer. On arrival here, Hgb 6.2 and after 2 units PRBC Hgb 8.3 this AM. This AM CO2 95 and patient was placed on BiPAP. Procedures: None NSAIDs: ASA Anticoagulation: Eliquis Past Med Surg Social Fam HX - Past Medical History Medical history: arthritis, atrial fibrillation, CHF, diabetes, fibromyalgia, hyperlipidemia, hypertension Psychiatric history: anxiety, PTSD - Past Surgical History Additional surgical history: bunyon x2, colonoscopy - Social History Smoking Status: Former smoker Alcohol use: none Drug use: none - Gastrointestinal Gastrointestinal: Present: as per HPI - Constitutional Constitutional: as per HPI - EENT Eyes: as per HPI Ears: Present: as per HPI Nose, mouth and throat: Present: as per HPI - Cardiovascular Cardiovascular ROS: Present: as per HPI - Respiratory Respiratory IM: Present: as per HPI - Genitourinary Genitourinary: Absent: change in color, Urinary frequency - Neurological ROS Neurological GI: Present: as per HPI - Hematologic/Lymphatic Hematologic/Lymphatic pediatric: Present: as per HPI - Musculoskeletal Musculoskeletal ROS GI: Present: as per HPI - Integumentary Integumentary GI: Present: as per HPI - Psychiatric ROS Psychiatric GI: Present: as per HPI - Endocrine Endocrine IM: Present: as per HPI - Constitutional Vitals: Temp Pulse Resp BP Pulse Ox 97.9 F 76 14 105/60 95 06/27/18 10:41 06/27/18 10:41 06/27/18 10:41 06/27/18 10:41 06/27/18 10:41 General appearance: Present: cooperative, A&O X 3, no acute distress, answers questions appropriately - Head Head exam: Present: atraumatic, normocephalic - Eye Eye exam: Present: normal appearance, sclera anicteric - ENT ENT exam: Present: mucous membranes moist - Neck Neck exam general surgery: Present: normal inspection, trachea midline - Respiratory Respiratory exam: Present: decreased breath sounds, wheezes Additional comments: On BiPAP - Cardiovascular Cardiovascular exam: Present: RRR, +S1, +S2 - GI/Abdominal GI/Abdominal exam: Present: distended (mild), soft, no peritoneal signs. Absent: firm, guarding, tenderness - Rectal Rectal exam: Present: deferred - Extremities Exam Extremities exam: Present: warm - Neurological Exam Neurological exam: Present: no focal deficits - Psychiatric Psychiatric exam: Present: normal affect, normal mood - Skin Skin exam: Present: dry, intact, normal color, warm Results - Labs CBC & Chem 7: 06/27/18 06:51 06/27/18 06:51 Labs: Last Result Calcium 8.8 mg/dL (8.6-10.3) 06/27/18 06:51 Troponin I < 0.03 ng/mL (< 0.04) 06/27/18 06:51 Entire Visit Hgb 8.3 g/dL (12.9-16.9) L D 06/27/18 06:51 Hct 29.3 % (37.5-50.1) L 06/27/18 06:51 PT 14.4 Seconds (9.4-12.1) H 06/27/18 06:51 Total Bilirubin 0.7 mg/dL (0.3-1.0) 06/27/18 06:51 AST 15 Units/L (13-39) 06/27/18 06:51 ALT 11 Units/L (7-52) 06/27/18 06:51 - ABG ABG results: ABG ABG pH 7.30 pH Units (7.32-7.45) L 06/27/18 08:21 ABG pCO2 95 mmHg (35-45) H* 06/27/18 08:21 ABG pO2 86 mmHg (85-104) 06/27/18 08:21 ABG O2 Saturation 94 % (95-98) L 06/27/18 08:21 PT/INR, D-dimer PT 14.4 Seconds (9.4-12.1) H 06/27/18 06:51 - Impressions Impressions Chest X-Ray 06/27/18 07:55 IMPRESSION: 1. Mild pulmonary vascular congestion. D/ / Morales Loyola MD / Moralse Loyola MD Interpreting Provider: Morales Loyola MD Consult Discharge Plan - Plan Referrals: [facility] [Outside]
[2018-06-27 20:27] LABS: Hematocrit 33.7 % (37.5-50.1); Hemoglobin 10.1 g/dL (12.9-16.9)
[2018-06-27 21:09] LABS: ABG Base Excess 17 mEq/L (-2 to 3); ABG HCO3 48 mEq/L (21-27); ABG Oxygen Saturation 96 % (95-98); ABG PCO2 103 mmHg (35-45); ABG PH 7.27 pH Units (7.32-7.45); ABG PO2 102 mmHg (85-104); ABG TCO2 > 50 mEq/L (20-26); Blood Gas Modality Avaps; Blood Gas PEEP 8 cm H2O; Blood Gas Pressure Support 8 cm H2O; Blood Gas Respiration Rate 12; Blood Gas VT 500 cc
[2018-06-28] MEDS: Clotrimazole 1% CRM 15 GM TUBE TP SCH ×3 (00:37→20:46)
[2018-06-28] MEDS: (Pravastatin Sodium [Pravachol] 20 MG) PO SCH ×2 (00:43→20:49)
[2018-06-28] MEDS: Ipratropium/Albuterol Neb 3 ML IH SCH ×4 (04:45→21:50)
[2018-06-28 06:12] LABS: ABG Base Excess 12 mEq/L (-2 to 3); ABG HCO3 39 mEq/L (21-27); ABG Oxygen Saturation 89 % (95-98); ABG PCO2 62 mmHg (35-45); ABG PO2 59 mmHg (85-104); ABG TCO2 41 mEq/L (20-26)
[2018-06-28 07:14] LABS: Basophils % 0.1 %; Hematocrit 33.2 % (37.5-50.1); Hemoglobin 9.9 g/dL (12.9-16.9); Immature Granulocytes % 0.6 % (0-4); Lymphocytes # 1.1 K/mcL (0.6-4.6); Lymphocytes % 13.5 %; Mean Corpuscular HGB Conc 29.8 g/dL (31.6-35.5); Mean Corpuscular Hemoglobin 27.3 pg (28.0-33.3); Mean Corpuscular Volume 91.7 fL (83.0-100.0); Mean Platelet Volume 10.5 fL (9.4-12.4); Monocytes # 0.8 K/mcL (0.0-1.3); Neutrophils # 5.9 K/mcL (1.6-8.9); Nucleated Red Blood Cells 0.4 /100 WBC (0); Platelet Count 222 K/mcL (140-400); Red Blood Count 3.62 M/mcL (4.19-5.50); Red Cell Distribution Width 17.1 % (11.5-14.5); Segmented Neutrophils % 75.8 %
[2018-06-28] MEDS ORDERED: *HR* Propofol 200 MG/20 ML VIAL IVP ONE (07:15)
[2018-06-28] MEDS ORDERED: Lidocaine -MPF 2% 2 ML VIAL ONE (07:17)
[2018-06-28 07:25] LABS: Calcium 8.5 mg/dL (8.6-10.3); Potassium 4.9 mEq/L (3.5-5.1)
--- NOTE | 2018-06-28 07:28 | Anesthesia Evaluation PreOp ---
Date of Encounter: 06/28/18 Time of Encounter: 07:26 - Past History Planned Operation: EGD re: Melena x 1 month Cardiac History: CHF, HTN, Hyperlipidemia, Arrhythmia (AFib - last ASA & Eliquis "yesterday" at [facility] - per Pt) Pulmonary History: Former smoker, COPD (hOme O2 3L/NC), FLORIAN Dx (+ CPAP use) SHEET ROCK TAPER History: Other (Fibromyalgia. Anxiety/PTSD [Pt resides at [facility]]) Other Medical History: Denies Any Significant HX, Other (MO/BMI = 49) Anesthesia History: No Prior Anesthetic Complications, Past Anesthesia (Bunionectomy x 2. Colonoscopy), Problems (PT reports being "too awake" for prior EGD/Colonoscopies and waking up too soon at the end of toe surgery) Alcohol Use: none Drug use: none Medications and Allergies Acetaminophen [Non-Aspirin] 650 mg PO Q6H PRN 06/26/18 [History] Apixaban [Eliquis] 5 mg PO BID 06/26/18 [History] Aspirin 81 mg PO DAILY 06/26/18 [History] Budesonide/Formoterol 160/4.5 [Symbicort 160/4.5] 2 puff IH BIDR 06/26/18 [History] Cholecalciferol (D-3) [Vitamin D] 2,000 unit PO DAILY 06/26/18 [History] Clotrimazole 1% CRM [Lotrimin 1%] 1 appl TP BID 06/26/18 [History] Furosemide [Lasix] 60 mg PO BID 06/26/18 [History] Hydrocortisone 1% CREAM [Cortaid] 1 gm TP Q6H PRN 06/26/18 [History] Ipratropium/Albuterol Neb [Duoneb] 3 ml IH Q6HR 06/26/18 [History] Losartan [Cozaar] 50 mg PO DAILY 06/26/18 [History] Metoprolol [Lopressor] 25 mg PO BID 06/26/18 [History] NIFEdipine XL (24 HR) [Procardia XL] 30 mg PO DAILY 06/26/18 [History] Polyethylene Glycol 3350 [MiraLAX] 17 gm PO DAILY PRN 06/26/18 [History] Pravastatin Sodium [Pravachol] 20 mg PO HS 06/26/18 [History] Allergy/AdvReac Type Severity Reaction Status Date / Time methadone Allergy Hallucinati Verified 06/26/18 19:50 ng mirtazapine Allergy Rash Verified 06/26/18 19:50 morphine Allergy Hallucinati Verified 06/26/18 19:50 ng simvastatin Allergy Gastrointestinal Verified 06/26/18 19:50 Upset - Meds/Allergy Pre-op Review Medications Reviewed: Yes Allergies Reviewed: Yes Beta Blockers on Current Med List: No Anesthesia Results - Labs 06/28/18 06:39 06/28/18 06:39 Laboratory Results Laboratory Tests 06/27/18 06/28/18 06:51 06:39 PT 14.4 H INR 1.3 APTT 28.5 Est GFR (Non-Af Amer) 46 L Glucose 104 Calcium 8.5 L Impressions Chest X-Ray 06/27/18 07:55 IMPRESSION: 1. Mild pulmonary vascular congestion. D/ / Morales Loyola MD / Morales oLyola MD Interpreting Provider: Morales Loyola MD - Imaging EKG: image reviewed (72bpm SR) Anesthesia Exam Vital Signs Temp Pulse Resp BP Pulse Ox 06/28/18 07:11 16 98 06/27/18 23:51 98.5 F 81 15 126/74 92 06/27/18 21:43 13 95 06/27/18 20:35 20 89 06/27/18 18:51 97.2 F L 79 15 130/76 92 06/27/18 17:04 98.4 F 65 16 132/67 95 06/27/18 15:32 18 95 06/27/18 14:38 98.7 F 79 18 138/55 95 06/27/18 14:23 98.7 F 76 16 138/67 06/27/18 13:49 98.8 F 69 18 115/66 95 06/27/18 10:56 98.3 F 58 18 110/53 95 06/27/18 10:41 97.9 F 76 14 105/60 95 06/27/18 10:19 21 92 Intake and Output 06/27/18 06/27/18 06/28/18 15:59 23:59 07:59 Intake Total 350 / 1350 350 / 1350 Output Total 575 / 975 400 / 975 Balance -225 / 375 -50 / 375 Intake: Oral 0 / 0 0 / 0 Blood Product 350 / 1350 350 / 1350 Rbcs Leuko Poor As-1 Unit 350 / 350 [id number] Rbcs Leuko Poor As-1 Unit 0 / 350 350 / 350 [id number] Output: Urine 575 / 975 400 / 975 Other: Meal NPO Percent of Meal Consumed 0% # Voids 1 Blood Glucose* 134 130 Height: 5'8" Weight: 320# BMI = 49 NPO (# of Hours): MNoc - HEENT Pupil (Motor): Pupils equal, EOMI Mallampati: III Oral Opening: Greater than 3 - SHEET ROCK TAPER LOC: Oriented SHEET ROCK TAPER Motor: Normal RUE, Normal LUE, Normal RLE, Normal LLE, Normal Face SHEET ROCK TAPER Sensory: Normal: RUE, LUE, RLE, LLE, Face - Cardiac Rhythm: Regular Murmur: None - Pulmonary Breath Sounds: bilateral Clear Respiratory Effort: Symmetrical Anesthesia Assess/Plan ASA Score: 4 (MO/BMI = 49, COPD, AFib, HTN, Chol, CHF, PTSD) Level of consciousness: Cooperative, Oriented Anesthetic Plan: MAC Monitoring Plan: Standard Monitors Recovery Plan: Other Anes Supervising Prov Stmt: Pt seen/evaluated, R&B Discussed, questions answered and consent obtained. Sherice Mccullough MD
[2018-06-28] MEDS: Budesonide/Formoterol 160/4.5 1 PUFF INH IH SCH ×2 (10:32→21:50)
[2018-06-28] MEDS: predniSONE 20 MG TABLET PO SCH (11:18)
[2018-06-28] MEDS: Aspirin 81 MG TAB.CHEW PO SCH (11:19)
[2018-06-28] MEDS: Pantoprazole 40 MG VIAL IVP SCH ×2 (11:22→17:33)
--- NOTE | 2018-06-28 12:43 | Internal Med Progress Note ---
Hospitalist Progress Note - Encounter Date of Encounter: 06/28/18 Time of Encounter: 12:46 - Subjective Interval History: No complaints, no acute events. Returned from EGD, no issues. - Exam Vitals: Temp Pulse Resp BP Pulse Ox 98.3 F 78 20 132/67 93 06/28/18 11:17 06/28/18 11:17 06/28/18 11:17 06/28/18 11:17 06/28/18 11:17 Exam: General: Alert and oriented 2 sitting up in bed in no acute distress, cooperative Skin:Normal color, no rash, no lesions. HEENT:EOMI, PERRLA Cardiovascular: RRR. Lungs:+ wheezing throughout. Abdomen:Soft, distended non-tender, no rigidity. Extremities:No deformity, 2+ bipedal pitting edema Neurological:Normal cognition and motor skills. Pulses:Carotid and radial pulses normal +2. Psych: normal mood, no agitation. - Assessment and Plan (1) Anemia Current Visit: Yes Status: Acute Assessment and Plan: Acute blood loss anemia secondary to UGIB Patient presents with symptomatic anemia with reports of melanotic stools concerning for upper GI bleed. Found to have a hemoglobin of 6.3. [facility] 7 today with reports of patient's hemoglobin being 10 three days ago and positive occult stool today. Patient currently on Eliquis for atrial fibrillation. Does report some brief symptoms of dizziness when standing. Hemodynamically stable otherwise. s/p 4 units PRBC, hemodynamically stable. EGD today showed esophagitis and gastritis, no active bleeding. Also showed a gastric ulcer without bleeding. Eliquis remains DC'd - advance diet as tolerated - H&H - ppi continued (2) Upper GI bleed Current Visit: Yes Status: Acute Assessment and Plan: Plan as above. (3) Acute and chronic respiratory failure Current Visit: Yes Status: Acute Assessment and Plan: [facility] documents patient became agitated and confused and oxygen level was in 70s and needed bipap and then levels improved. BP was 99/60, on nifedipine for htn and rectal spasms and this medication has hold paremeters. He does exhibit wheezing on exam as well. BIPAP as needed Continue scheduled duo nebs Continue (4) COPD (chronic obstructive pulmonary disease) Current Visit: Yes Status: Acute Assessment and Plan: History of COPD currently on 3 L nasal cannula at baseline. [facility] hypoxic and became agitated. He does wheeze here -Continue home inhalers (5) Atrial fibrillation Current Visit: Yes Status: Acute Assessment and Plan: History of atrial fibrillation rate controlled on anticoagulation with Eliquis prior to admission. - Hold Eliquis - Continue metoprolol (6) Congestive heart failure Current Visit: Yes Status: Acute Assessment and Plan: History of congestive heart failure currently on 60 mg of Lasix twice a day. No reports of chest pain at this time. Troponin negative. EKG shows no acute ischemic changes. - Status post 4 units PRBC he does have some edema, which improved after IV Lasix and now his lower extremity edema is at baseline. Resume Lasix when he is tolerating a diet. (7) Chronic respiratory failure with hypoxia Current Visit: Yes Status: Acute (8) Clubfoot Current Visit: Yes Status: Acute (9) Wrist drop Current Visit: Yes Status: Acute (10) Anxiety Current Visit: Yes Status: Acute (11) Obstructive sleep apnea Current Visit: Yes Status: Acute (12) Mild cognitive disorder Current Visit: Yes Status: Acute - Time Spent with Patient Total time spent is greater than 50% in coordination of care (as documented) at patient's floor/unit and/or counseling patient: Internal Medicine: Result - Labs CBC & Chem 7: 06/28/18 06:39 06/28/18 06:39 Labs: Short CBC 06/27/18 06/28/18 Range/Units 19:41 06:39 WBC 7.8 (4.3-11.1) K/mcL Hgb 10.1 L D 9.9 L (12.9-16.9) g/dL Hct 33.7 L 33.2 L (37.5-50.1) % Plt Count 222 (140-400) K/mcL Neutrophils # 5.9 (1.6-8.9) K/mcL BMP 06/28/18 06:39 Sodium 147 H Potassium 4.9 Chloride 99 Carbon Dioxide 42 H* BUN 31 H Creatinine 1.51 H Glucose 104 Calcium 8.5 L - ABG Interpretation ABG results: ABG ABG pH 7.40 pH Units (7.32-7.45) 06/28/18 06:06 ABG pCO2 62 mmHg (35-45) H 06/28/18 06:06 ABG pO2 59 mmHg (85-104) L 06/28/18 06:06 ABG O2 Saturation 89 % (95-98) L 06/28/18 06:06 PT/INR, D-dimer PT 14.4 Seconds (9.4-12.1) H 06/27/18 06:51 Consult Discharge Plan - Plan Referrals: [facility] [Outside] (1) Anemia Qualifiers: Anemia type: unspecified type Qualified Code(s): D64.9 - Anemia, unspecified (3) Acute and chronic respiratory failure Qualifiers: Respiratory failure complication: hypoxia Qualified Code(s): J96.21 - Acute and chronic respiratory failure with hypoxia (4) COPD (chronic obstructive pulmonary disease) Qualifiers: Emphysema type: unspecified Qualified Code(s): J43.9 - Emphysema, unspecified (5) Atrial fibrillation Qualifiers: Atrial fibrillation type: unspecified Qualified Code(s): I48.91 - Unspecified atrial fibrillation (6) Congestive heart failure Qualifiers: Heart failure type: unspecified Heart failure chronicity: unspecified Qualified Code(s): I50.9 - Heart failure, unspecified
--- NOTE | 2018-06-28 16:22 | Anesthesia Evaluation Post Op ---
Date of Encounter: 06/28/18 Time of Encounter: 09:15 - Vital Signs Vital Signs: Vital Signs Temp Pulse Resp BP Pulse Ox 06/28/18 14:16 98.5 F 68 20 118/68 93 06/28/18 11:17 98.3 F 78 20 132/67 93 06/28/18 10:31 16 91 06/28/18 08:46 79 20 125/62 96 06/28/18 07:11 16 98 06/28/18 03:30 98.3 F 78 139/69 87 06/27/18 23:51 98.5 F 81 15 126/74 92 06/27/18 21:43 13 95 06/27/18 20:35 20 89 06/27/18 18:51 97.2 F L 79 15 130/76 92 06/27/18 17:04 98.4 F 65 16 132/67 95 Intake and Output 06/28/18 06/28/18 06/28/18 07:59 15:59 23:59 Other: Blood Glucose* 105 - Lungs Lungs: Clear Ascult./Percussion - Airway Airway: Non-obstructed - Cardiovascular Regular Rate - Mental Status Mental Status: Alert & Oriented, Answers Appropriately - Pain Pain Scale: 0 Pain Scale used: Numeric (1 - 10) - Nausea Vomiting Nausea Vomiting: Not Present - Hydration Hydration: NPO, Has not voided - Discharge PostOp Status: Transfer Patient to floor Anes Supervising Prov Stmt: Pt VSS and has met criteria for discharge to home. - MD Sadia
--- NOTE | 2018-06-28 17:39 | Electrocardiograph Report ---
[address] [address] Test Date: 2018-06-26 Pat Name: Satnam Dubon Department: EXAM7 Room: 3A45 Gender: M Supervisor Sanding: : 1945 Requested By: Francisco J Liu Order Number: [id number] Reading MD: Sarai Boo Measurements Intervals [place] Rate: 72 P: 31 NE: 182 QRS: 60 QRSD: 95 T: 64 QT: 397 QTc: 435 Interpretive Statements Sinus rhythm Electronically Signed On 06-28-2018 17:38:03 EDT by Sarai Boo
[2018-06-29] MEDS: Ipratropium/Albuterol Neb 3 ML IH SCH ×4 (04:08→21:59)
[2018-06-29] MEDS: Pantoprazole 40 MG VIAL IVP SCH ×2 (05:27→18:39)
[2018-06-29 07:46] LABS: Basophils % 0.1 %; Hemoglobin 9.6 g/dL (12.9-16.9)
[2018-06-29 07:47] LABS: Eosinophils % 0.1 %; Hematocrit 33.5 % (37.5-50.1); Immature Granulocytes % 0.4 % (0-4); Lymphocytes # 1.4 K/mcL (0.6-4.6); Lymphocytes % 16.5 %; Mean Corpuscular HGB Conc 28.7 g/dL (31.6-35.5); Mean Corpuscular Hemoglobin 26.7 pg (28.0-33.3); Mean Corpuscular Volume 93.1 fL (83.0-100.0); Mean Platelet Volume 10.3 fL (9.4-12.4); Monocytes # 0.9 K/mcL (0.0-1.3); Monocytes % 10.5 %; Platelet Count 239 K/mcL (140-400); Red Cell Distribution Width 16.4 % (11.5-14.5); Segmented Neutrophils % 72.4 %
[2018-06-29 08:02] LABS: Platelet Estimate Normal (Normal)
[2018-06-29 08:03] LABS: Anisocytosis 1+ (Not Present); Polychromasia 1+ (Not Present)
[2018-06-29 08:04] LABS: Hypochromasia Present (Not Present)
[2018-06-29 08:06] LABS: BUN/Creatinine Ratio 21 (6-26); Blood Urea Nitrogen 24 mg/dL (8-23); Calcium 8.5 mg/dL (8.6-10.3); Carbon Dioxide 39 mEq/L (23-29); Chloride 96 mEq/L (98-107); Glucose 108 mg/dL (70-105); Osmolality,Calculated 297 (280-300); Potassium 3.6 mEq/L (3.5-5.1); Sodium 141 mEq/L (136-145); eGFR For Non-African Americans > 60 (> 60)
[2018-06-29] MEDS: Aspirin 81 MG TAB.CHEW PO SCH (09:01)
[2018-06-29] MEDS: predniSONE 20 MG TABLET PO SCH (09:01)
[2018-06-29] MEDS: Budesonide/Formoterol 160/4.5 1 PUFF INH IH SCH ×2 (10:10→21:59)
--- NOTE | 2018-06-29 13:34 | Internal Med Progress Note ---
Hospitalist Progress Note - Encounter Date of Encounter: 06/29/18 Time of Encounter: 13:57 - Subjective Interval History: No acute events. No complaints. Patient does appear slightly weak but states he is at his baseline. - Exam Vitals: Temp Pulse Resp BP Pulse Ox 99.6 F 71 18 146/70 93 06/29/18 10:05 06/29/18 10:05 06/29/18 10:10 06/29/18 10:05 06/29/18 10:10 Exam: General: Alert and oriented 2 sitting up in bed in no acute distress, cooperative Skin:Normal color, no rash, no lesions. HEENT:EOMI, PERRLA Cardiovascular: RRR. Lungs:+ wheezing throughout. Abdomen:Soft, distended non-tender, no rigidity. Extremities:No deformity, 2+ bipedal pitting edema Neurological:Normal cognition and motor skills. Pulses:Carotid and radial pulses normal +2. Psych: normal mood, no agitation. - Assessment and Plan (1) Anemia Current Visit: Yes Status: Acute Assessment and Plan: Acute blood loss anemia secondary to UGIB Patient presents with symptomatic anemia with reports of melanotic stools concerning for upper GI bleed. Found to have a hemoglobin of 6.3. [facility] 7 today with reports of patient's hemoglobin being 10 three days ago and positive occult stool today. Patient currently on Eliquis for atrial fibrillation. Does report some brief symptoms of dizziness when standing. Hemodynamically stable otherwise. s/p 4 units PRBC, hemodynamically stable. EGD today showed esophagitis and gastritis, no active bleeding. Also showed a gastric ulcer without bleeding. Eliquis remains DC'd - H&H - ppi continued - GI eval, repeat EGD here vs as outpatient. - DC eliquis on discharge and primary care can re evaluate if patient needs (2) Upper GI bleed Current Visit: Yes Status: Acute Assessment and Plan: Plan as above. (3) Acute and chronic respiratory failure Current Visit: Yes Status: Acute Assessment and Plan: [facility] documents patient became agitated and confused and oxygen level was in 70s and needed bipap and then levels improved. BP was 99/60, on nifedipine for htn and rectal spasms and this medication has hold paremeters. He does exhibit wheezing on exam as well. BIPAP as needed Continue scheduled duo nebs Continue (4) COPD (chronic obstructive pulmonary disease) Current Visit: Yes Status: Acute Assessment and Plan: History of COPD currently on 3 L nasal cannula at baseline. [facility] hypoxic and became agitated. He does wheeze here -Continue home inhalers (5) Atrial fibrillation Current Visit: Yes Status: Acute Assessment and Plan: History of atrial fibrillation rate controlled on anticoagulation with Eliquis prior to admission. - Hold Eliquis - Continue metoprolol (6) Congestive heart failure Current Visit: Yes Status: Acute Assessment and Plan: History of congestive heart failure currently on 60 mg of Lasix twice a day. No reports of chest pain at this time. Troponin negative. EKG shows no acute ischemic changes. - Status post 4 units PRBC he does have some edema, which improved after IV Lasix and now his lower extremity edema is at baseline. Resume Lasix when he is tolerating a diet. (7) Chronic respiratory failure with hypoxia Current Visit: Yes Status: Acute (8) [place] Current Visit: Yes Status: Acute (9) Wrist drop Current Visit: Yes Status: Acute (10) Anxiety Current Visit: Yes Status: Acute (11) Obstructive sleep apnea Current Visit: Yes Status: Acute (12) Mild cognitive disorder Current Visit: Yes Status: Acute - Time Spent with Patient Total time spent is greater than 50% in coordination of care (as documented) at patient's floor/unit and/or counseling patient: Internal Medicine: Result - Labs CBC & Chem 7: 06/29/18 05:43 06/29/18 05:43 Labs: Short CBC 06/29/18 Range/Units 05:43 WBC 8.3 (4.3-11.1) K/mcL Hgb 9.6 L (12.9-16.9) g/dL Hct 33.5 L (37.5-50.1) % Plt Count 239 (140-400) K/mcL Neutrophils # 6.0 (1.6-8.9) K/mcL BMP 06/29/18 05:43 Sodium 141 Potassium 3.6 D Chloride 96 L Carbon Dioxide 39 H BUN 24 H Creatinine 1.14 Glucose 108 H Calcium 8.5 L - ABG Interpretation ABG results: ABG ABG pH 7.40 pH Units (7.32-7.45) 06/28/18 06:06 ABG pCO2 62 mmHg (35-45) H 06/28/18 06:06 ABG pO2 59 mmHg (85-104) L 06/28/18 06:06 ABG O2 Saturation 89 % (95-98) L 06/28/18 06:06 PT/INR, D-dimer PT 14.4 Seconds (9.4-12.1) H 06/27/18 06:51 Consult Discharge Plan - Plan Referrals: [facility] [Outside] (1) Anemia Qualifiers: Anemia type: unspecified type Qualified Code(s): D64.9 - Anemia, unspecified (3) Acute and chronic respiratory failure Qualifiers: Respiratory failure complication: hypoxia Qualified Code(s): J96.21 - Acute and chronic respiratory failure with hypoxia (4) COPD (chronic obstructive pulmonary disease) Qualifiers: Emphysema type: unspecified Qualified Code(s): J43.9 - Emphysema, unspecified (5) Atrial fibrillation Qualifiers: Atrial fibrillation type: unspecified Qualified Code(s): I48.91 - Unspecified atrial fibrillation (6) Congestive heart failure Qualifiers: Heart failure type: unspecified Heart failure chronicity: unspecified Qualified Code(s): I50.9 - Heart failure, unspecified
[2018-06-29] MEDS: Clotrimazole 1% CRM 15 GM TUBE TP SCH ×2 (18:39→19:57)
[2018-06-29] MEDS: (Pravastatin Sodium [Pravachol] 20 MG) PO SCH (20:08)
[2018-06-30] MEDS: Ipratropium/Albuterol Neb 3 ML IH SCH ×2 (03:34→10:30)
[2018-06-30 04:08] LABS: Basophils % 0.1 %; Mean Corpuscular Hemoglobin 27.1 pg (28.0-33.3)
[2018-06-30 04:10] LABS: Hematocrit 34.1 % (37.5-50.1); Hemoglobin 9.8 g/dL (12.9-16.9); Immature Granulocytes % 0.6 % (0-4); Lymphocytes # 1.1 K/mcL (0.6-4.6); Lymphocytes % 12.9 %; Mean Corpuscular HGB Conc 28.7 g/dL (31.6-35.5); Mean Corpuscular Volume 94.2 fL (83.0-100.0); Mean Platelet Volume 9.8 fL (9.4-12.4); Monocytes # 1.1 K/mcL (0.0-1.3); Monocytes % 12.5 %; Nucleated Red Blood Cells 0.3 /100 WBC (0); Platelet Count 231 K/mcL (140-400); Red Blood Count 3.62 M/mcL (4.19-5.50); Red Cell Distribution Width 16.1 % (11.5-14.5); Segmented Neutrophils % 73.9 %
[2018-06-30 04:17] LABS: Neutrophils # 6.4 K/mcL (1.6-8.9)
[2018-06-30 04:30] LABS: BUN/Creatinine Ratio 18 (6-26); Blood Urea Nitrogen 24 mg/dL (8-23); Calcium 8.6 mg/dL (8.6-10.3); Carbon Dioxide 38 mEq/L (23-29); Chloride 99 mEq/L (98-107); Glucose 132 mg/dL (70-105); Osmolality,Calculated 298 (280-300); Potassium 4.5 mEq/L (3.5-5.1); Sodium 141 mEq/L (136-145); eGFR For Non-African Americans 55 (> 60)
[2018-06-30 04:48] LABS: Platelet Estimate Normal (Normal)
[2018-06-30] MEDS: Pantoprazole 40 MG VIAL IVP SCH (05:04)
[2018-06-30 07:05] VITALS: BP 162/79
--- NOTE | 2018-06-30 08:09 | Discharge Summary ---
<Dawson Corbin - Last Filed: 06/30/18 10:20> - NOTES TO OUTPATIENT PROVIDER Notes to Outpatient Provider: Will need outpatient follow-up with gastroenterology Orders not resulted at time of discharge: Pending orders 06/26/18 20:45 Occult Blood,Stool [BF] Routine 06/27/18 07:55 EKG [ECG 12 lead ECG] [ECG] Stat 07/01/18 04:00 BMP [Basic Metabolic Panel] AM 0400 Complete Blood Count [HEME] AM 0400 07/02/18 04:00 BMP [Basic Metabolic Panel] AM 0400 Complete Blood Count [HEME] AM 0400 Date of Encounter: 06/30/18 Time of Encounter: 09:36 - Discharge Diagnosis (1) Anemia Priority: Primary Status: Acute Qualifiers: Anemia type: iron deficiency Iron deficiency anemia type: chronic blood loss Qualified Code(s): D50.0 - Iron deficiency anemia secondary to blood loss (chronic) (2) Upper GI bleed Priority: Secondary Status: Resolved (3) Acute and chronic respiratory failure Priority: Secondary Status: Resolved Qualifiers: Respiratory failure complication: hypoxia Qualified Code(s): J96.21 - Acute and chronic respiratory failure with hypoxia (4) Atrial fibrillation Priority: Secondary Status: Chronic Qualifiers: Atrial fibrillation type: unspecified Qualified Code(s): I48.91 - Unspecified atrial fibrillation (5) [place] Priority: Secondary Status: Acute Qualifiers: Laterality: unspecified laterality Qualified Code(s): 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 Dubon is a 72 year old male presented with chief complaint of dark stools [facility] Patient is on FOR atrial fibrillation. On presentation he had dizziness. On presentation his hemoglobin was 6.3 and his baseline is 10. Patient was also noted to be confused and hypoxic at the [place] needing BiPAP. His ABG showed hypercapnic respiratory failure. Eliquis was held. He was started on Protonix 40 mg IV twice a day, GI was consulted. He was given a total 4 units of packed red blood cells. His hemoglobin improved to 10. EGD showed LA grade a esophagitis with no bleeding, diffuse mild inflammation characterized by congestion in the entire stomach, a single 14 mm semi-sessile polyp with no bleeding or stigmata of recent bleeding, duodenal erosions without bleeding. Patient was recommended to have a repeat colonoscopy and EGD in the outpatient setting to remove polyp that was found in the EGD. His Eliquis was held on discharge and will need to be reevaluated by his PCP before restarting. Patient was also treated for acute respiratory failure secondary to COPD exacerbation and given prednisone and his respiration status improved. His blood pressure was stable this morning, hemoglobin is stable for the last 72 hours. He will be discharged back to the [place]. Discharge discussed with: patient - Time Spent with Patient Total time spent providing and/or coordinating discharge services: - Discharge Medications Prescriptions: New Sucralfate [Carafate] 1 gm PO QIDAC #120 tablet predniSONE [PredniSONE] 40 mg PO DAILY 1 Days #2 tablet Omeprazole [PriLOSEC] 40 mg PO BIDAC capsule.dr Trejo Polyethylene Glycol 3350 [MiraLAX] 17 gm PO DAILY PRN PRN Reason: Constipation NIFEdipine XL (24 HR) [Procardia XL] 30 mg PO DAILY Metoprolol [Lopressor] 25 mg PO BID Losartan [Cozaar] 50 mg PO DAILY Hydrocortisone 1% CREAM [Cortaid] 1 gm TP Q6H PRN PRN Reason: Itching Furosemide [Lasix] 60 mg PO BID Clotrimazole 1% CRM [Lotrimin 1%] 1 appl TP BID Cholecalciferol (D-3) [Vitamin D] 2,000 unit PO DAILY Budesonide/Formoterol 160/4.5 [Symbicort 160/4.5] 2 puff IH BIDR Aspirin 81 mg PO DAILY Ipratropium/Albuterol Neb [Duoneb] 3 ml IH Q6HR Acetaminophen [Non-Aspirin] 650 mg PO Q6H PRN PRN Reason: CHRONIC BACK PAIN Pravastatin Sodium [Pravachol] 20 mg PO HS Discontinued Apixaban [Eliquis] 5 mg PO BID Home Medications: Acetaminophen [Non-Aspirin] 650 mg PO Q6H PRN 06/26/18 [History] Aspirin 81 mg PO DAILY 06/26/18 [History] Budesonide/Formoterol 160/4.5 [Symbicort 160/4.5] 2 puff IH BIDR 06/26/18 [History] Cholecalciferol (D-3) [Vitamin D] 2,000 unit PO DAILY 06/26/18 [History] Clotrimazole 1% CRM [Lotrimin 1%] 1 appl TP BID 06/26/18 [History] Furosemide [Lasix] 60 mg PO BID 06/26/18 [History] Hydrocortisone 1% CREAM [Cortaid] 1 gm TP Q6H PRN 06/26/18 [History] Ipratropium/Albuterol Neb [Duoneb] 3 ml IH Q6HR 06/26/18 [History] Losartan [Cozaar] 50 mg PO DAILY 06/26/18 [History] Metoprolol [Lopressor] 25 mg PO BID 06/26/18 [History] NIFEdipine XL (24 HR) [Procardia XL] 30 mg PO DAILY 06/26/18 [History] Polyethylene Glycol 3350 [MiraLAX] 17 gm PO DAILY PRN 06/26/18 [History] Pravastatin Sodium [Pravachol] 20 mg PO HS 06/26/18 [History] Omeprazole [PriLOSEC] 40 mg PO BIDAC capsule. 06/30/18 [Rx] Sucralfate [Carafate] 1 gm PO QIDAC #120 tablet 06/30/18 [Rx] predniSONE [PredniSONE] 40 mg PO DAILY 1 Days #2 tablet 06/30/18 [Rx] Allergies/Adverse Reactions: Allergy/AdvReac Type Severity Reaction Status Date / Time methadone Allergy Hallucinati Verified 06/26/18 19:50 ng mirtazapine Allergy Rash Verified 06/26/18 19:50 morphine Allergy Hallucinati Verified 06/26/18 19:50 ng simvastatin Allergy Gastrointestinal Verified 06/26/18 19:50 Upset Date of admission: 06/26/18 21:20 [facility] care physician: [facility] Consults: 06/26/18 19:09 Consult to Gastroenterology [CONS] Stat Consulting Provider: [facility] [place] Reason for Consult: chronic GI bleed, Hgb 6.7 Call Completed: No 06/27/18 06:17 Consult to Model Engine Mechanic [CONS] Routine Reason for SW Consult: Discharge planning. [place] [facility] care. Discharging clinician: Dawson Corbin Anticipated date of discharge: 06/30/18 - Constitutional Vitals: Temp Pulse Resp BP Pulse Ox 97.9 F 76 20 162/79 96 06/30/18 07:03 06/30/18 07:03 06/30/18 07:03 06/30/18 07:03 06/30/18 07:03 Exam: General: Alert and oriented 2 sitting up in bed in no acute distress, cooperative Skin:Normal color, no rash, no lesions. HEENT:EOMI, PERRLA Cardiovascular: RRR. Lungs:+ wheezing throughout. Abdomen:Soft, distended non-tender, no rigidity. Extremities:No deformity, 2+ bipedal pitting edema Neurological:Normal cognition and motor skills. Pulses:Carotid and radial pulses normal +2. Psych: normal mood, no agitation. - Patient Status Disposition: Transfer [facility] Condition: Fair Functional capacity at discharge: uses cane/walker Overall status at discharge: patient is progressing back to baseline - Discharge Instructions Follow Up With: [facility] [Outside] () Kodak Michelle MD [Partnered Physician] - (Web request. Office will call patient with date and time of appointment. Thank you) - Diet and Activity Activity: increase activity as tolerated Diet: low fat, low cholesterol, low salt diet <Constantine Brown - Last Filed: 06/30/18 14:27> Orders not resulted at time of discharge: Pending orders 06/26/18 20:45 Occult Blood,Stool [BF] Routine 06/27/18 07:55 EKG [ECG 12 lead ECG] [ECG] Stat Date of Encounter: 06/30/18 - Discharge Diagnosis (1) Anemia Status: Acute Qualifiers: Anemia type: iron deficiency Iron deficiency anemia type: chronic blood loss Qualified Code(s): D50.0 - Iron deficiency anemia secondary to blood loss (chronic) (2) Upper GI bleed Status: Resolved (3) Acute and chronic respiratory failure Status: Resolved Qualifiers: Respiratory failure complication: hypoxia Qualified Code(s): J96.21 - Acute and chronic respiratory failure with hypoxia (4) COPD (chronic obstructive pulmonary disease) Status: Chronic Qualifiers: Emphysema type: unspecified Qualified Code(s): J43.9 - Emphysema, unspecified (5) Atrial fibrillation Status: Chronic Qualifiers: Atrial fibrillation type: unspecified Qualified Code(s): I48.91 - Unspecified atrial fibrillation (6) Congestive heart failure Status: Chronic Qualifiers: Heart failure type: unspecified Heart failure chronicity: unspecified Qualified Code(s): I50.9 - Heart failure, unspecified (7) Chronic respiratory failure with hypoxia Status: Acute (8) [place] Status: Acute Qualifiers: Laterality: unspecified laterality Qualified Code(s): 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 Dubon is a 72 year old male - Time Spent with Patient Total time spent providing and/or coordinating discharge services: Date of admission: 06/26/18 21:20 Primary care physician: PCP [place] Consults: 06/26/18 19:09 Consult to Gastroenterology [CONS] Stat Consulting Provider: [facility] [place] Reason for Consult: chronic GI bleed, Hgb 6.7 Call Completed: No 06/27/18 06:17 Consult to Model Engine Mechanic [CONS] Routine Reason for SW Consult: Discharge planning. [place] [facility]. - Constitutional Vitals: Temp Pulse Resp BP Pulse Ox 97.9 F 76 18 162/79 95 06/30/18 07:03 06/30/18 07:03 06/30/18 10:30 06/30/18 07:03 06/30/18 10:30 - Attending Attestation I examined this patient and my medical decision-making was reviewed with the Resident Physician. I agree with the documented findings, disposition and treatment plan as described except to the extent set forth below. Will need to address anticoagulation as outpatient. Eliquis held on DC due to GI bleed. Will need to follow-up with BP medication titration. BP lower-normal and so calcium channel sandy was held.
--- NOTE | 2018-06-30 09:47 | Physician Discharge Referral ---
[facility] Referral Info Transfer To: [place] Provider in Charge: Dr. Brown Provider in Charge after Transfer: PCP Institutional Level of Care: Intermediate - Diagnosis (1) Anemia Priority: Primary Status: Acute (2) Upper GI bleed Priority: Secondary Status: Resolved (3) Acute and chronic respiratory failure Priority: Secondary Status: Resolved (4) Atrial fibrillation Priority: Secondary Status: Chronic (5) [place] Priority: Secondary Status: Acute (6) Congestive heart failure Priority: Secondary Status: Chronic (7) COPD (chronic obstructive pulmonary disease) Priority: Secondary Status: Chronic (8) Mild cognitive disorder Priority: Secondary Status: Chronic (9) Obstructive sleep apnea Priority: Secondary Status: Chronic - Transfer Medications Prescriptions: Sucralfate [Carafate] 1 gm PO QIDAC #120 tablet Home Medications: Acetaminophen [Non-Aspirin] 650 mg PO Q6H PRN 06/26/18 [History] Aspirin 81 mg PO DAILY 06/26/18 [History] Budesonide/Formoterol 160/4.5 [Symbicort 160/4.5] 2 puff IH BIDR 06/26/18 [History] Cholecalciferol (D-3) [Vitamin D] 2,000 unit PO DAILY 06/26/18 [History] Clotrimazole 1% CRM [Lotrimin 1%] 1 appl TP BID 06/26/18 [History] Furosemide [Lasix] 60 mg PO BID 06/26/18 [History] Hydrocortisone 1% CREAM [Cortaid] 1 gm TP Q6H PRN 06/26/18 [History] Ipratropium/Albuterol Neb [Duoneb] 3 ml IH Q6HR 06/26/18 [History] Losartan [Cozaar] 50 mg PO DAILY 06/26/18 [History] Metoprolol [Lopressor] 25 mg PO BID 06/26/18 [History] NIFEdipine XL (24 HR) [Procardia XL] 30 mg PO DAILY 06/26/18 [History] Polyethylene Glycol 3350 [MiraLAX] 17 gm PO DAILY PRN 06/26/18 [History] Pravastatin Sodium [Pravachol] 20 mg PO HS 06/26/18 [History] Omeprazole [PriLOSEC] 40 mg PO BIDAC capsule. 06/30/18 [Rx] Sucralfate [Carafate] 1 gm PO QIDAC #120 tablet 06/30/18 [Rx] predniSONE [PredniSONE] 40 mg PO DAILY 1 Days #2 tablet 06/30/18 [Rx] Allergies/Adverse Reactions: Allergy/AdvReac Type Severity Reaction Status Date / Time methadone Allergy Hallucinati Verified 06/26/18 19:50 ng mirtazapine Allergy Rash Verified 06/26/18 19:50 morphine Allergy Hallucinati Verified 06/26/18 19:50 ng simvastatin Allergy Gastrointestinal Verified 06/26/18 19:50 Upset - Respiratory Orders Oxygen / L per min (3L) Smoking Cessation: Smoking cessation has been advised. For more information, call the [place] Tobacco Quit Line at 2-712-WJRZ-NOW. - Advance Directives Code Status: Full Code - Mobility Orders Ambulate (with walker) - Rehabiliation Orders Rehab Potential: Good Rehab Orders: Evaluation for Physical Therapy, Evaluation for Occupational Therapy - Diet Orders Cardiac CERTIFICATION: I certify that the transfer of the above named patient to an Extended Care Facility is necessary for the continuing treatment of the diagnosis listed. The above information is true and accurate reflection of patient's current condition. Confidential - Redisclosure prohibited without a patient's written consent.
[2018-06-30] MEDS: Clotrimazole 1% CRM 15 GM TUBE TP SCH (09:48)
[2018-06-30] MEDS: predniSONE 20 MG TABLET PO SCH (09:48)
[2018-06-30] MEDS: Budesonide/Formoterol 160/4.5 1 PUFF INH IH SCH (10:30)
== END 2018-06-30 14:07 | DRG 377 ==
LOC: EMEROOARM 17:50 → 3ANU 17:50 → SUATTDRO 21:20 → 3ANU 21:42
PROVIDERS: ADMIT Internal Medicine; ATTEND Student in an Organized Health Care Education/Training Program
PROC: ENDOEBX (2018-06-28 08:00)